=== PATIENT | female | born 1985 | race African-American/Black ===

== ENCOUNTER 2022-12-31 09:51 | Emergency (ER) | payer OTHER ==
[~2022-12-31] VITALS: Ht 177.8 cm; Wt 115.7 kg
[2022-12-31 11:05] LABS: APPEARANCE,URINE CLEAR (CLEAR); BILIRUBIN,URINE NEGATIVE (NEGATIVE); BLOOD, URINE TRACE-INTA Ery/uL (NEGATIVE); KETONES,URINE NEGATIVE (NEGATIVE); LEUKOCYTE ESTERASE ,URINE NEGATIVE (NEGATIVE); NITRITE, URINE NEGATIVE (NEGATIVE); PROTEIN,URINE NEGATIVE (NEGATIVE); UGLUCOSE NEGATIVE (NEGATIVE); UROBILINOGEN,URINE 0.2 EU/dL (0.2)
[2022-12-31 11:06] LABS: COLOR,URINE STRAW (YELLOW)
[2022-12-31 11:12] LABS: CALCIUM, SERUM 9.1 mg/dL (8.5-10.1); CREATININE 0.7 mg/dL (0.6-1.3); POTASSIUM 3.8 mmol/L (3.5-5.1)
[2022-12-31 11:29] LABS: ADD URINE CULTURE NO; BACTERIA,URINE None seen /HPF (None Seen); RBC,URINE 0-2 /HPF (0-2); SQUAMOUS EPITHELIAL CELL,UR Few /HPF (None Seen); WBC,URINE 0-2 /HPF (0-3)
[2022-12-31 11:38] LABS: PREGNANCY TEST URINE QUAL NEGATIVE (NEGATIVE)
[2022-12-31 13:06] LABS: BASOPHILS % (AUTO) 0.7 % (0.0-2.0); EOSINOPHILS # (AUTO) 0.1 K/uL (0.0-0.7); HEMOGLOBIN 13.7 g/dL (11.5-14.8); MONOCYTES # (AUTO) 0.4 K/uL (0.1-1.30); WHITE BLOOD COUNT (AUTO) 6.7 K/uL (4.3-11.0)
[2022-12-31 13:27] LABS: EOSINOPHILS % (AUTO) 1.1 % (0.0-6.0); HEMATOCRIT 43 % (33-45); LYMPHOCYTES # (AUTO) 1.8 K/uL (0.8-4.8); LYMPHOCYTES % (AUTO) 27.3 % (20.0-44.0); MEAN CORPUSCULAR HEMOGLOBIN 25 PG (26.0-33.0); MEAN CORPUSCULAR HGB CONC 32 g/dl (31.0-36.0); MEAN CORPUSCULAR VOLUME 79 fL (82-100); NEUTROPHILS # (AUTO) 4.4 K/uL (1.8-8.9); NEUTROPHILS % (AUTO) 64.9 % (43.0-81.0); PLATELET COUNT (AUTO) 142 K/uL (150-450); RED BLOOD CELL COUNT(AUTO) 5.43 MIL/uL (4.0-5.2); RED CELL DISTRIBUTION WIDTH 15.5 % (11.5-15.0)
[2022-12-31] MEDS ORDERED: ACET325C7 PO (13:44)
[2022-12-31 13:52] LABS: ANISOCYTOSIS 1+; PLATELET ESTIMATE DECRE
[2022-12-31 13:53] LABS: OVALOCYTES OCC
[2022-12-31 14:02] VITALS: BP 131/79; TEMP 98.1; O2SAT 100
== END 2022-12-31 14:03 | disposition home or self-care (01) ==
LOC: ER 10:03
DX: R53.81 Other malaise (principal); R53.83 Other fatigue; R35.0 Frequency of micturition; I10 Essential (primary) hypertension
CPT/HCPCS: 36415; 80048-TC; 81001; 84703-TC; 85025-TC

== ENCOUNTER 2023-09-09 14:46 | Emergency (ER) | payer OTHER ==
[~2023-09-09] VITALS: Ht 170.2 cm; Wt 90.7 kg
[~2023-09-09 14:46] MED LIST: ACET325C7 PO
[2023-09-09 14:53] VITALS: BP 171/102; TEMP 98.5; O2SAT 100
[2023-09-09] MEDS: LIDOCAINE 5% (PATCH) 1 EA PATCH TP STA (16:10)
[2023-09-09] MEDS ORDERED: LIDOCAINE 5% (PATCH) 1 EA PATCH TP ONE (16:14)
[2023-09-09] MEDS ORDERED: ACETAMINOPHEN 325 MG TABLET ONE (16:14)
[2023-09-09] MEDS: ACETAMINOPHEN 325 MG TABLET PO ONE (16:18)
== END 2023-09-09 18:08 | disposition left against medical advice (07) ==
LOC: ER 14:52
DX: M25.561 Pain in right knee (principal); I10 Essential (primary) hypertension

== ENCOUNTER 2023-09-20 00:39 | Emergency (ER) | payer OTHER ==
[~2023-09-20] VITALS: Ht 170.2 cm; Wt 90.7 kg
[2023-09-20] MEDS ORDERED: GABA-532 PO (01:45)
[2023-09-20 02:04] VITALS: BP 161/84; O2SAT 98
== END 2023-09-20 02:05 | disposition home or self-care (01) ==
LOC: ER 00:42
DX: G62.9 Polyneuropathy, unspecified (principal); I10 Essential (primary) hypertension

== ENCOUNTER 2025-01-19 11:42 | Emergency (ER) | payer OTHER ==
[~2025-01-19] VITALS: Ht 172.7 cm; Wt 114.3 kg
[~2025-01-19 11:42] MED LIST changes: +GABA-532 PO
[2025-01-19 14:27] VITALS: BP 156/88; TEMP 97.8; O2SAT 100
== END 2025-01-19 14:28 | disposition home or self-care (01) ==
LOC: ER 11:42
DX: I10 Essential (primary) hypertension (principal); R51.9 Headache, unspecified; Z79.899 Other long term (current) drug therapy